=== PATIENT | male | born 1955 | race Caucasian/White ===

== ENCOUNTER 2017-07-23 13:38 | Emergency (ER) | payer BC ==
[~2017-07-23] VITALS: Ht 175.3 cm; Wt 88.5 kg
[2017-07-23] MEDS ORDERED: IBUPROFEN 800800 MG PO (14:51)
[2017-07-23] MEDS ORDERED: NORCO 5-325 TA1 EACH PO (14:51)
[2017-07-23] MEDS ORDERED: CYCLOBENZAPRINE5 MG PO (14:51)
[2017-07-23 15:10] VITALS: BP 151/87
== END 2017-07-23 15:11 | disposition home or self-care (01) ==
LOC: M.ERS 13:38
DX: S20.212A Contusion of left front wall of thorax, initial encounter (principal); W19.XXXA Unspecified fall, initial encounter; Y93.89 Activity, other specified; Y92.89 Other specified places as the place of occurrence of the external cause; Y99.8 Other external cause status

== ENCOUNTER → 2020-08-12 | Outpatient (CLI) | payer OTHER ==
[~2020-08-12] MED LIST: CYCLOBENZAPRINE5 MG PO; IBUPROFEN 800800 MG PO; NORCO 5-325 TA1 EACH PO
== END ==
LOC: M.CT 08:15
PROVIDERS: ATTEND Nurse Practitioner Family
DX: Z13.6 Encounter for screening for cardiovascular disorders (principal)

== ENCOUNTER → 2020-08-30 | Outpatient (CLI) | payer OTHER ==
--- NOTE | 2020-08-30 12:45 | 2DMMODE ---
[place] [address] 2 D/M-MODE ECHOCARDIOGRAM Name: DEEPTI MAYEN Room: [facility]#: [id number] Admission: 08/30/20 Attend Phys: SHAYE XIE Discharge: Date of : 57 Date of Service: 08/30/20 1244 Report #: [id number] THIS REPORT FOR: cc: SHAYE FERNANDEZ NP, KATHERINE J. NP Liston, Michael J. MD [facility] ~ APPROVED REPORT Study performed: 08/30/2020 10:42:56 EXAM: Comprehensive 2D, Doppler, and color-flow Echocardiogram Patient Location: Out-Patient BSA: 2.02 HR: 72 bpm BP: 135/80 mmHg Other Information Study Quality: Good Indications Calcified aortic valve 2D Dimensions IVSd: 12.09 (7-11mm) LVOT Diam: 20.85 (18-24mm) LVDd: 50.88 mm PWd: 11.54 (7-11mm) Ascending Ao: 33.65 (22-36mm) LVDs: 26.88 (25-40mm) Aortic Root: 32.20 mm Volumes Left Atrial Volume (Systole) LA ESV Index: 18.90 mL/m2 Aortic Valve AoV Peak Sai.: 1.27 m/s AO Peak Gr.: 6.46 mmHg LVOT Max P.11 mmHg AO Mean Gr.: 3.44 mmHg LVOT Mean P.40 mmHg LVOT Max V: 1.13 m/s AO V2 VTI: 23.31 cm LVOT Mean V: 0.71 m/s FRIDA (VTI): 3.52 cm2 LVOT V1 VTI: 24.03 cm Mitral Valve E/A Ratio: 0.76 [place] [address] 2 D/M-MODE ECHOCARDIOGRAM Name: DEEPTI MAYEN Room: [facility]#: [id number] Admission: 08/30/20 Attend Phys: SHAYE XIE Discharge: Date of : 57 Date of Service: 08/30/20 1244 Report #: [id number] MV Decel. Time: 242.42 ms MV E Max Sai.: 0.57 m/s MV PHT: 70.30 ms MVA (PHT): 3.13 cm2 TDI E/Lateral E': 7.13 E/Medial E': 6.33 Medial E' Sai.: 0.09 m/s Lateral E' Sai.: 0.08 m/s Pulmonary Valve PV Peak Sai.: 1.25 m/s PV Peak Gr.: 6.22 mmHg Tricuspid Valve RAP Estimate: 5.00 mmHg TR Peak Gr.: 21.01 mmHg RVSP: 26.01 mmHg PA Pressure: 26.01 mmHg Left Ventricle The left ventricle is normal size. There is normal LV segmental wall motion. There is normal left ventricular wall thickness. Left ventricular systolic function is normal. LVEF is 65-70%. Grade I - abnormal relaxation pattern. Right Ventricle The right ventricle is normal size. The right ventricular systolic function is normal. Atria The left atrium size is normal. The right atrium size is normal. Aortic Valve Aortic valve is mildly calcified. No aortic regurgitation is present. There is no aortic valvular stenosis. Mitral Valve The mitral valve is normal in structure. There is no mitral valve regurgitation noted. No evidence of mitral valve stenosis. Tricuspid Valve The tricuspid valve is normal in structure. Mild tricuspid regurgitation. The RVSP is 25 mmHg. Pulmonic Valve The pulmonary valve is normal in structure. [place] [address] 2 D/M-MODE ECHOCARDIOGRAM Name: DEEPTI MAYEN Room: [facility]#: [id number] Admission: 08/30/20 Attend Phys: SHAYE XIE Discharge: Date of : 57 Date of Service: 08/30/20 1244 Report #: [id number] valvular regurgitation. Great Vessels The aortic root is normal in size. IVC is normal in size and collapses >50% with inspiration. Pericardium There is no pericardial effusion. <Conclusion> The left ventricle is normal size. There is normal left ventricular wall thickness. Left ventricular systolic function is normal. LVEF is 65-70%. Grade I - abnormal relaxation pattern. There is normal LV segmental wall motion. Aortic valve is mildly calcified. There is no aortic valvular stenosis. Mild tricuspid regurgitation. The RVSP is 25 mmHg. IVC is normal in size and collapses >50% with inspiration. <ELECTRONICALLY SIGNED> By: Cliff Dias MD, FACC 08/30/20 1244 1244 1244 Cliff Dias MD, FACC /INF
== END ==
LOC: M.CRD 10:57
PROVIDERS: ATTEND Nurse Practitioner Family
DX: I08.8 Other rheumatic multiple valve diseases (principal); I70.0 Atherosclerosis of aorta